=== PATIENT | male | born 1950 | race Caucasian/White ===

== ENCOUNTER → 2017-07-08 | Outpatient (CLI) | payer BC ==
--- NOTE | 2017-07-08 14:44 | CARD ---
APPROVED REPORT EXAM: Two-dimensional and M-mode echocardiogram with Doppler and color Doppler. Other Information Quality : Fair INDICATION Murmur 2D DIMENSIONS Left Atrium(2D)3.4 (1.6-4.0cm)IVSd1.2 (0.7-1.1cm) Aortic Root(2D)2.9 (2.0-3.7cm)LVDd5.3 (3.9-5.9cm) LVOT Diameter2.0 (1.8-2.4cm)PWd1.2 (0.7-1.1cm) LVDs3.3 (2.5-4.0cm)FS (%) 30.0 % SV89.9 mlLVEF(%)60.0 (>50%) Aortic Valve AoV Peak Jimi.150.7cm/sAoV VTI30.9cm AO Peak GR.9.1mmHgLVOT Peak Jimi.136.2cm/s AO Mean GR.5mmHgAVA (VMAX)2.85cm2 DEYSI (VTI)3.10cm2 Mitral Valve MV E Xvjpdkos90.2cm/sMV DECEL [id number] MV A Vhpohyev80.3cm/sE/A Ratio0.7 Tricuspid Valve TR P. Zmcwhuup095bn/sRAP EPCTRDSL3mfKj TR Peak Gr.82gmRbXMDS60frWp Pulmonary Vein S1 Ghllwhvn65.4cm/sD2 Epvlnjov12.8cm/s PVa [id number] LEFT VENTRICLE The left ventricle is normal size. There is mild concentric left ventricular hypertrophy. The left ve ntricular systolic function is normal. The Ejection Fraction is 55-60%. Transmitral Doppler flow constantino vlad is Grade I-abnormal relaxation pattern. RIGHT VENTRICLE The right ventricle is normal size. The right ventricular systolic function is normal. ATRIA The left atrium size is normal. The right atrium size is normal. The interatrial septum is intact wit h no evidence for an atrial septal defect or patent foramen ovale as noted on 2-D or Doppler imaging. AORTIC VALVE The aortic valve is calcified but opens well. Doppler and Color Flow revealed no significant aortic r egurgitation. There is no significant aortic valvular stenosis. MITRAL VALVE The mitral valve is calcified but opens well. There is no evidence of mitral valve prolapse. There is no mitral valve stenosis. Doppler and Color Flow revealed no mitral valve regurgitation noted. TRICUSPID VALVE The tricuspid valve is normal in structure and function. Doppler and Color Flow revealed physiologica l tricuspid regurgitation. The PA pressure was estimated at 26 mmHg. There is no tricuspid valve sten osis. PULMONIC VALVE The pulmonary valve is normal in structure and function. Doppler and Color Flow revealed trace pulmon ic valvular regurgitation. There is no pulmonic valvular stenosis. GREAT VESSELS The aortic root is normal in size. The ascending aorta is normal in size. The IVC is normal in size a nd collapses >50% with inspiration. PERICARDIAL EFFUSION There is no evidence of significant pericardial effusion. Critical Notification Critical Value: No <Conclusion> The left ventricular systolic function is normal. The Ejection Fraction is 55-60%. Transmitral Doppler flow pattern is Grade I-abnormal relaxation pattern. There is no evidence of significant pericardial effusion.
== END | disposition home or self-care (01) ==
LOC: ECHO 10:44
PROVIDERS: ATTEND Internal Medicine Cardiovascular Disease
DX: I50.32 Chronic diastolic (congestive) heart failure (principal); I51.7 Cardiomegaly
CPT/HCPCS: 93306